=== PATIENT | female | born 1995 | race Caucasian/White ===

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

== ENCOUNTER → 2017-02-16 | Outpatient (CLI) | payer MEDICAID ==
[~2017-02-16] MED LIST changes: +BACTRIM DS 8001 TA1 PO
[2017-02-16 12:54] LABS: LYMPH # 2.4 K/mm3 (0.7-4.5); LYMPH % 41.1 % (10-50.0)
[2017-02-16 13:03] LABS: HEMOGLOBIN 13.9 g/dL (12.2-16.2)
[2017-02-16 14:09] LABS: BUN 8 mg/dL (7-18)
[2017-02-16 14:17] LABS: GFR (ESTIMATED) 92 ML/MIN (59-)
== END ==
LOC: LAB 12:34
PROVIDERS: Physician Assistant
DX: T14.8XXA Other injury of unspecified body region, initial encounter (principal)